=== PATIENT | male | born 1980 | race Native Hawaiian/Other Pacific Islander ===

== ENCOUNTER 2022-12-12 18:47 | Emergency (ER) | payer OTHER ==
[~2022-12-12] VITALS: Ht 167.6 cm; Wt 121.6 kg
[2022-12-12 18:47] VITALS: BP 134/88; TEMP 98.2
[~2022-12-12 18:47] MED LIST: SERT50TA PO
[2022-12-12 19:17] LABS: PLATELET COUNT 226 K/uL (142-355)
[2022-12-12 19:23] LABS: POTASSIUM 3.8 mmol/L (3.6-5.2)
[2022-12-13] MEDS ORDERED: BACLOFEN20 MG PO (16:02)
[2022-12-13] MEDS ORDERED: AMLODIPINE BESYLATE PO (16:02)
[2022-12-13] MEDS ORDERED: DECUBI-VITE PO (16:03)
[2022-12-13] MEDS ORDERED: BISACODYL LAXAT10 MG RE (16:03)
[2022-12-13] MEDS ORDERED: BUSPIRONE10 MG PO (16:03)
[2022-12-13] MEDS ORDERED: DQZATE100 MG PO (16:04)
[2022-12-13] MEDS ORDERED: FENT100D TD (16:05)
[2022-12-13] MEDS ORDERED: GABA300C2 PO (16:05)
[2022-12-13] MEDS ORDERED: GVOKE HYPO1 MG/0.2 M SC (16:06)
[2022-12-13] MEDS ORDERED: JARDIANCE10 MG PO (16:07)
[2022-12-13] MEDS ORDERED: HALO5INJ3 IM (16:07)
[2022-12-13] MEDS ORDERED: HYDR25TA60 PO (16:07)
[2022-12-13] MEDS ORDERED: KETOCONAZOLE2 % TOP (16:08)
[2022-12-13] MEDS ORDERED: LANTUS SOL100 UNIT/M SC (16:08)
[2022-12-13] MEDS ORDERED: MOBIC7.5 M1 PO (16:09)
[2022-12-13] MEDS ORDERED: IMODIUM A-D2 MG PO (16:09)
[2022-12-13] MEDS ORDERED: NOVOLOG100 UNIT/M SC (16:10)
[2022-12-13] MEDS ORDERED: PANTOPRAZOLE 40MG TA PO (16:10)
[2022-12-13] MEDS ORDERED: TAMS0.4C PO (16:11)
[2022-12-13] MEDS ORDERED: SENNOSIDES8.6 MG PO (16:11)
[2022-12-13] MEDS ORDERED: TORSEMIDE20 MG PO (16:25)
[2022-12-13] MEDS ORDERED: TIZA4TAB5 PO (16:25)
[2022-12-13] MEDS ORDERED: PAIN RELIEF500 M1 PO (16:26)
[2022-12-13] MEDS ORDERED: SERT100T PO (16:27)
[2022-12-13] MEDS ORDERED: ONDANSETRON HYDR8 MG PO (16:27)
[2022-12-18] MEDS ORDERED: MIRALAX 17GM PAK PO (17:13)
[2022-12-18] MEDS ORDERED: TYLENOL 500MG TAB PO (17:13)
[2022-12-18] MEDS ORDERED: DULCOLAX 10MG SUPP PR (17:13)
[2022-12-18] MEDS ORDERED: NORVASC 5MG TAB PO (17:13)
== END 2022-12-12 20:10 | disposition other institution (70) ==
LOC: ED 18:47
PROVIDERS: Family Medicine
DX: Z04.6 Encounter for general psychiatric examination, requested by authority (principal); F29 Unspecified psychosis not due to a substance or known physiological condition; F32.A Depression, unspecified; E11.9 Type 2 diabetes mellitus without complications; I10 Essential (primary) hypertension; E78.00 Pure hypercholesterolemia, unspecified; F17.210 Nicotine dependence, cigarettes, uncomplicated; N40.0 Benign prostatic hyperplasia without lower urinary tract symptoms; Z20.822 Contact with and (suspected) exposure to COVID-19
CPT/HCPCS: 36415; 80053; 85027; 87635; 93005; 99283; U0003